=== PATIENT | male | born 1980 | race Caucasian/White ===

== ENCOUNTER 2017-08-28 10:31 | Emergency (ER) | payer MEDICAID ==
[2017-08-28 10:37] VITALS: BP 112/70; PULSE 81; RESP 18; TEMP 98.2; O2SAT 96
--- NOTE | 2017-08-28 11:09 | EDPHY ---
H & P Stated Complaint: noted bright red blood in stool this morning/no other symptoms Source: Patient Exam Limitations: No limitations - Personal History Current Tetanus/Diphtheria Vaccine: Unsure - Medical/Surgical History Hx Asthma: No Hx Chronic Respiratory Disease: No Hx Diabetes: No Hx Cardiac Disease: No Hx Renal Disease: No Hx Cirrhosis: No Hx Alcoholism: No Hx HIV/AIDS: No Hx Splenectomy or Spleen Trauma: No Other PMH: meningitis as child - Social History Smoking Status: Never smoked Time Seen by Provider: 08/28/17 11:09 HPI/ROS: HPI: This is a 37-year-old male who presents with Chief Complaint: noted bright red blood in stool this morning/no other symptoms Location: rectal Quality: Bleeding Duration: This a.m. Signs and Symptoms: no fever, no nausea, no vomiting, no hematemesis,+ blood in stool, no abdominal bloating, no diarrhea, no back pain, no urinary symptoms, no testicular/groin pain, no indigestion, no chest pain, no shortness of breath Timing: Acute Severity: Mild Context: Patient is generally healthy presents to the emergency room with complaints of 1 episode of blood in his stool when he had a bowel movement this morning. He reports that he had to strain as he was in a hurry. He has a history of external hemorrhoids in the past. Denies any abdominal pain/nausea/ vomiting/weight loss. Does not regularly drink alcohol or use NSAIDs. Patient has a family history of colon cancer and no primary care provider. Eating and drinking normally. Modifying Factors: None Comment: ROS: see HPI Constitutional: No fever, no chills, no weight loss Eyes: No blurred vision Respiratory: No shortness of breath, no cough Cardiovascular: No chest pain, no palpitations Gastrointestinal: No nausea, no vomiting, no diarrhea, no hematemesis, no blood in stool Genitourinary: No dysuria, no blood in urine Extremities: No myalgias, no edema Neurologic: No weakness, no numbness Skin: No rashes, no petechiae Hematologic: No bruising, no bleeding MEDICAL/SURGICAL/SOCIAL HISTORY: Medical history: Generally healthy. Does not take any regular medications. Surgical history: Denies Social history: Employed. CONSTITUTIONAL: Well-developed well-nourished nontoxic-appearing adult white female, awake and alert, no obvious distress HEENT: Atraumatic and normocephalic, PERRL, EOMI. Tympanic membranes clear. Oropharynx clear, no exudate and moist pink mucosa. Airway patent. No lymphadenopathy. No meningismus. Cardiovascular: Normal S1/S2, regular rate, regular rhythm, without murmur rub or gallop. PULMONARY/CHEST: Symmetrical and nontender. Clear to auscultation bilaterally. Good air movement. No accessory muscle usage. ABDOMEN: Soft, nondistended, nontender, no rebound, no guarding, no peritoneal signs, no masses or organomegaly. No CVAT. RECTAL: Good sphincter tone, light brown stool in vault, skin tags and non thrombosed small external hemorrhoid, no fissures, no palpable masses, guaiac negative EXTREMITIES: 2/2 pulses, strength 5/5, no deformities, no clubbing, no cyanosis or edema. NEUROLOGICAL: no focal neuro deficits. GCS 15. SKIN: Warm and dry, no erythema. no rash. Good capillary refill. (Phylicia Lindo) Constitutional: Initial Vital Signs Temperature (C) 36.8 C 08/28/17 10:35 Heart Rate 81 08/28/17 10:35 Respiratory Rate 18 08/28/17 10:35 Blood Pressure 112/70 08/28/17 10:35 O2 Sat (%) 96 08/28/17 10:35 O2 Delivery Mode Room Air Allergies/Adverse Reactions: amoxicillin Allergy (Verified 08/28/17 10:34) Home Medications: Medication Instructions Recorded Hydrocortisone Acetate 25 mg [place] Q6 PRN #7 supp 08/28/17 [Hemorrhoidal Hc 25 mg supp (*)] Polyethylene Glycol 3350 [Miralax 17 gm PO DAILY PRN #1 btl 08/28/17 17 gm (*)] Medical Decision Making ED Course/Re-evaluation: Vital signs reviewed upon arrival and stable. Guaiac negative. Abdomen soft and nontender. Doubt surgical abdomen. Discussed with patient obtaining labs and imaging but he has politely declined as he prefers to treat supportively and then establish care with primary care provider which I have given him a referral to as well as Gastroenterology due to his family history of colon cancer. This patient was seen under the supervision of my secondary supervising physician. I evaluated care for this patient independently. (Phylicia Lindo) I did not see this patient while he was in the emergency department. However his care was discussed with the PA while the patient was in the department. I agree with treatment plan and management (Lonnie Hinojosa) Differential Diagnosis: Lower GI bleeding including but not limited to diverticulosis, tumor, AVM, hemorrhoid and anal fissure. (Phylicia Lindo) Departure - Departure Disposition: Home, Routine, Self-Care Clinical Impression: Constipation, Hemorrhoids Condition: Good Instructions: Constipation (ED), Hemorrhoids (ED), Rectal Bleeding (ED), High Fiber Diet (ED) Additional Instructions: Consume a minimum of 8-10 glasses of water or electrolyte fluid replacement drinks that include Gatorade, Powerade, Pedialyte. Eat a bland diet for the next 48 hours and then slowly advance as tolerated. Take MiraLax daily for the next 5 days and then daily as needed for constipation. Do not strain to have a bowel movement. Establish care with primary care provider and follow up with Gastroenterology in 1-2 weeks due to family history of colon cancer and to discuss candidacy of colonoscopy. Return to the Emergency Room if symptoms do not resolve in the next 48-72 hours , you spike a fever > 102 F, or experience intractable abdominal pain/nausea/ vomiting. Referrals: Tiffany Rincon MD [Medical Doctor] - As per Instructions [facility],. [Clinic] - As per Instructions Prescriptions: Hydrocortisone Acetate [Hemorrhoidal Hc 25 mg supp (*)] 25 mg [place] Q6 PRN #7 supp PRN Reason: Inflammation Polyethylene Glycol 3350 [Miralax 17 gm (*)] 17 gm PO DAILY PRN #1 btl PRN Reason: Constipation
== END 2017-08-28 11:30 | disposition home or self-care (01) ==
DX: K64.4 Residual hemorrhoidal skin tags (principal); K59.00 Constipation, unspecified